=== PATIENT | male | born 1990 | race Caucasian/White ===

== ENCOUNTER 2018-05-15 14:35 | Emergency (ER) | payer MEDICAID ==
[~2018-05-15] VITALS: Ht 167.6 cm; Wt 73.0 kg
[2018-05-15 14:38] VITALS: Ht 167.6 cm; Wt 73.0 kg
[2018-05-15 15:34] LABS: BASOPHIL % 0.3 % (0-2); PLATELET COUNT 254 x10^3mcL (130-400); RED CELL DISTRIBUTION WIDTH 13.4 % (11.5-14.5)
[2018-05-15 15:49] LABS: ALKALINE PHOSPHATASE 51 U/L (46-116); ALT/SGPT 34 U/L (16-63); AST/SGOT 12 U/L (15-37); BILIRUBIN TOTAL 0.42 mg/dL (0.20-1.00); CALCIUM 8.5 mg/dL (8.5-10.1); CARBON DIOXIDE 29.2 mmol/L (21-32); CHLORIDE SERUM 102 mmol/L (98-107); CREATININE SERUM 0.9 mg/dL (0.7-1.3); GFR1 > 60 mL/min; GLUCOSE SERUM 114 mg/dL (74-106); SODIUM SERUM 138 mmol/L (136-145)
[2018-05-15 15:51] LABS: POTASSIUM SERUM 2.9 mmol/L (3.5-5.1)
[2018-05-15 16:01] LABS: urine erythrocyte NEGATIVE (NEGATIVE)
[2018-05-15 16:06] LABS: microscopic required? NO
[2018-05-15 18:20] VITALS: BP 122/80
== END 2018-05-15 18:58 | disposition home or self-care (01) ==
LOC: ED 14:35
PROVIDERS: Emergency Medicine
DX: E87.6 Hypokalemia (principal); R53.1 Weakness; F17.210 Nicotine dependence, cigarettes, uncomplicated; F31.9 Bipolar disorder, unspecified; F20.9 Schizophrenia, unspecified
CPT/HCPCS: J2405; J7030